=== PATIENT | male | born 1940 | race Caucasian/White ===

== ENCOUNTER 2017-11-21 05:57 | Observation (INO) | payer MEDICARE ==
[2017-11-17 14:47] VITALS: BP 88/45
[2017-11-17 14:48] LABS: BASOPHILS % (AUTO) 0.6 % (0.0-5.0); EOSINOPHILS % (AUTO) 1.3 % (0.0-8.0); HEMATOCRIT 32.8 % (42-54); LYMPHOCYTES % (AUTO) 17.4 % (21.0-51.0); MEAN CORPUSCULAR HEMOGLOBIN 34.9 pg (27.0-33.0); MEAN CORPUSCULAR HGB CONC 33.3 g/dL (32.0-36.0); MEAN CORPUSCULAR VOLUME 104.6 fL (79-99); MONOCYTES % (AUTO) 12.4 % (3.0-13.0); NEUTROPHILS % (AUTO) 68.3 % (40.0-77.0); PLATELET COUNT (AUTO) 175 K/uL (130-400); RED BLOOD CELL COUNT(AUTO) 3.14 MIL/uL (4.50-6.20); RED CELL DISTRIBUTION WIDTH 13.5 % (11.0-15.5); WHITE BLOOD COUNT (AUTO) 3.3 K/uL (4.8-10.8)
[2017-11-17 14:58] LABS: CREATININE 1.1 mg/dL (0.5-1.5); POTASSIUM 4.4 mmol/L (3.5-5.1)
[2017-11-17 14:59] LABS: INR 1.35 (0.85-1.15); PARTIAL THROMBOPLASTIN TIME 39.1 SEC (26.3-35.5); PROTHROMBIN TIME 14.1 SEC (9.6-11.6)
[2017-11-21] VITALS (11 sets, daily range): BP systolic 88–114; BP diastolic 39–80
[~2017-11-21] VITALS: Ht 182.9 cm; Wt 79.7 kg
[~2017-11-21 05:57] MED LIST: ATOR10 PO; CEFAZOLIN SODIUM 1 GM VIAL IVP SCH; METO-408 PO; RIVA20TA PO; SACU1TAB PO
[2017-11-21] MEDS ORDERED: SODIUM CHLORIDE 0.9% 1000ML 1,000 ML IV ONE (06:46)
[2017-11-21] MEDS ORDERED: BUPIVACAINE/PF 0.25% 30ML VIAL IJ ONE (07:14)
[2017-11-21] MEDS ORDERED: LIDOCAINE HCL 1% MDV 50ML VIAL ONE (07:15)
[2017-11-21] MEDS ORDERED: MEPERIDINE-PF 25 MG/ML SYG ONE ×4 (07:15→10:35)
[2017-11-21] MEDS ORDERED: MIDAZOLAM HCL 1 MG/ML 2ML VIAL ONE ×4 (07:15→10:35)
[2017-11-21] MEDS ORDERED: CEFAZOLIN SODIUM 1 GM VIAL ONE (07:15)
[2017-11-21] MEDS ORDERED: IODIXANOL 320 MG/ML 100 ML VIAL ONE (07:41)
[2017-11-21] MEDS ORDERED: VANCOMYCIN 1GM+NS 250ML 250 ML IV ONE (10:48)
[2017-11-21] MEDS ORDERED: TEMAZEPAM 30 MG CAP PO PRN (11:30)
[2017-11-21] MEDS ORDERED: ONDANSETRON HCL 4 MG/2 ML VIAL IV PRN (11:30)
[2017-11-21] MEDS ORDERED: ACETAMINOPHEN 325 MG TAB PO PRN (11:30)
[2017-11-21] MEDS ORDERED: ACETAMINOPHEN-CODEINE 300/30MG TAB PO PRN ×2 (11:30)
[2017-11-21] MEDS: METOPROLOL TARTRATE 25 MG TAB PO SCH (20:35)
[2017-11-21] MEDS ORDERED: ATORVASTATIN CALCIUM 20 MG TABLET PO SCH (21:00)
[2017-11-22 07:53] VITALS: BP 113/66
[2017-11-22] MEDS ORDERED: **HM** ENTRESTO 24-26MG PO SCH (09:00)
[2017-11-22] MEDS: METOPROLOL TARTRATE 25 MG TAB PO SCH (10:16)
[2017-11-22 11:36] VITALS: BP 110/74
== END 2017-11-22 11:50 | disposition home or self-care (01) ==
LOC: DAH 05:57 → DAHIP 05:58 → 2DH 12:12
PROVIDERS: ADMIT Internal Medicine Cardiovascular Disease; ATTEND Internal Medicine Cardiovascular Disease
DX: I48.2 Chronic atrial fibrillation (principal); I25.10 Atherosclerotic heart disease of native coronary artery without angina pectoris; E78.5 Hyperlipidemia, unspecified; I35.0 Nonrheumatic aortic (valve) stenosis; I50.22 Chronic systolic (congestive) heart failure; Z95.810 Presence of automatic (implantable) cardiac defibrillator; Z79.899 Other long term (current) drug therapy; Z79.01 Long term (current) use of anticoagulants
CPT/HCPCS: 33225; 33249; 36415; 71045; 80048; 85025; 85610; 85730; 93005; A4218; A4606; C1769 ×2; C1882; C1895; C1900 ×2; G0378 ×30; J0690; J2175 ×4; J2250 ×4; J3370; J3490 ×2; J7030; Q9967; 99156; 99157

== ENCOUNTER 2018-07-13 10:15 | Inpatient (IN) | payer MEDICARE ==
[~2018-07-13] VITALS: Ht 188 cm; Wt 79.2 kg
[~2018-07-13 10:15] MED LIST changes: -CEFAZOLIN SODIUM 1 GM VIAL IVP SCH
[2018-07-13] MEDS ORDERED: IOHEXOL-350 75 ML VIAL IV ONE (11:06)
[2018-07-13 11:10] LABS: BASOPHILS % (AUTO) 0.1 % (0.0-5.0); LYMPHOCYTES % (AUTO) 1.7 % (21.0-51.0); MEAN CORPUSCULAR HEMOGLOBIN 36.3 pg (27.0-33.0); MEAN CORPUSCULAR HGB CONC 34.8 g/dL (32.0-36.0); MEAN CORPUSCULAR VOLUME 104.5 fL (79-99); MONOCYTES % (AUTO) 7.9 % (3.0-13.0); NEUTROPHILS % (AUTO) 90.3 % (40.0-77.0); NUCLEATED RED BLOOD CELLS 0.1 % (0.0-0.19); PLATELET COUNT (AUTO) 163 K/uL (130-400); RED BLOOD CELL COUNT(AUTO) 3.16 MIL/uL (4.50-6.20); RED CELL DISTRIBUTION WIDTH 14.8 % (11.0-15.5); WHITE BLOOD COUNT (AUTO) 7.1 K/uL (4.8-10.8)
[2018-07-13 11:19] LABS: CREATININE 1.4 mg/dL (0.5-1.5); POTASSIUM 4.4 mmol/L (3.5-5.1)
[2018-07-13 11:24] LABS: ALBUMIN 3.4 g/dL (3.5-5.0); BILIRUBIN,TOTAL 3.7 mg/dL (0.2-1.0); TOTAL PROTEIN, SERUM 6.6 g/dL (6.0-8.3)
[2018-07-13 11:45] LABS: INR 1.09 (0.85-1.15); PARTIAL THROMBOPLASTIN TIME 34.1 SEC (26.3-35.5); PROTHROMBIN TIME 11.4 SEC (9.6-11.6)
[2018-07-13 11:56] LABS: B-TYPE NATRIURETIC PEPTIDE 623 pg/mL (0-100)
[2018-07-13] MEDS ORDERED: FUROSEMIDE 10 MG/ML 4ML VIAL ONE (12:26)
[2018-07-13] MEDS ORDERED: ENOXAPARIN SODIUM 40 MG/0.4 ML SYRINGE SQ ONE (13:49)
[2018-07-13] MEDS ORDERED: ONDANSETRON HCL 4 MG/2 ML VIAL ONE (13:49)
[2018-07-13] MEDS ORDERED: MORPHINE SULFATE 2 MG/ML 1ML SYG ONE (13:50)
[2018-07-13] MEDS ORDERED: LACTATED RINGERS 1000ML 1,000 ML IV ONE (13:50)
[2018-07-13] MEDS ORDERED: LACTATED RINGERS 1000ML 1,000 ML IV SCH (14:45)
[2018-07-13] MEDS ORDERED: ONDANSETRON HCL 4 MG/2 ML VIAL IVP PRN (14:45)
[2018-07-13 18:50] VITALS: BP 96/49
[2018-07-13] MEDS ORDERED: FURO20TA4 PO (18:57)
[2018-07-13] MEDS ORDERED: LEVO50TA11 PO (18:57)
[2018-07-13] MEDS ORDERED: AMIO200T5 PO (18:57)
[2018-07-13] MEDS ORDERED: METO-409 PO (18:57)
[2018-07-13] MEDS ORDERED: DIGO250T13 PO (18:57)
[2018-07-13 19:30] VITALS: BP 94/58
[2018-07-13] MEDS: METOPROLOL TARTRATE 50 MG TAB PO SCH (21:00)
[2018-07-13] MEDS ORDERED: METOPROLOL TARTRATE 25 MG TAB PO SCH (21:00)
[2018-07-13] MEDS: ATORVASTATIN CALCIUM 10 MG TABLET PO SCH (22:59)
[2018-07-13 23:27] VITALS: BP 96/59
[2018-07-13] MEDS: FUROSEMIDE 10 MG/ML 2ML VIAL IV SCH (23:49)
[2018-07-14 04:01] LABS: CREATININE 1.5 mg/dL (0.5-1.5); POTASSIUM 4.1 mmol/L (3.5-5.1)
[2018-07-14 04:15] VITALS: BP 91/61
[2018-07-14] MEDS: LEVOTHYROXINE 50 MCG TABLET PO SCH (06:41)
[2018-07-14 07:00] VITALS: BP 101/58
[2018-07-14] MEDS: **HM** ENTRESTO 24-26MG PO SCH ×2 (09:00→21:59)
[2018-07-14 11:00] VITALS: BP 107/64
[2018-07-14] MEDS: FUROSEMIDE 20 MG TABLET PO SCH (11:13)
[2018-07-14] MEDS: METOPROLOL TARTRATE 50 MG TAB PO SCH ×2 (11:13→21:00)
[2018-07-14] MEDS: AMIODARONE HCL 200 MG TABLET PO SCH (11:13)
[2018-07-14] MEDS: FUROSEMIDE 10 MG/ML 2ML VIAL IV SCH ×2 (11:14→23:30)
[2018-07-14] MEDS: ENOXAPARIN SODIUM 40 MG/0.4 ML SYRINGE SQ SCH (11:14)
[2018-07-14 12:37] LABS: BASOPHILS % (AUTO) 0.1 % (0.0-5.0); EOSINOPHILS % (AUTO) 0.1 % (0.0-8.0); HEMATOCRIT 31.4 % (42-54); LYMPHOCYTES % (AUTO) 2.3 % (21.0-51.0); MEAN CORPUSCULAR HEMOGLOBIN 35.3 pg (27.0-33.0); MEAN CORPUSCULAR HGB CONC 33.6 g/dL (32.0-36.0); MEAN CORPUSCULAR VOLUME 104.8 fL (79-99); NEUTROPHILS % (AUTO) 89.5 % (40.0-77.0); PLATELET COUNT (AUTO) 162 K/uL (130-400); RED CELL DISTRIBUTION WIDTH 14.5 % (11.0-15.5); WHITE BLOOD COUNT (AUTO) 7.5 K/uL (4.8-10.8)
[2018-07-14 16:00] VITALS: BP 104/64
[2018-07-14] MEDS: DIGOXIN 250 MCG TABLET PO SCH (16:00)
--- NOTE | 2018-07-14 16:00 | NUR ---
INITIAL: Met with pt and spouse this afternoon to discuss dcp. Prior to admission pt was living w spouse. He was on a trip to [place] when he fell and injured himself. Prior to injury pt was independent w ambulation and ADLs. He mentions that he feels safe and comfortable [place] He mentions that his spouse will be able to assist him if needed. Discussed options avail such a short term SNF/Rehab. Pt declines at this time. CM to continue to follow and wait for Md recommendations. Addendum: 07/14/18 at 1602 by JULIO MUNOZ CM Amended: Links added.
--- NOTE | 2018-07-14 18:14 | NUR ---
SPOKE WITH DR. LAN AND MD SAID THAT HE WILL SEE PATIENT TOMORROW. UPDATES GIVEN.
[2018-07-14] MEDS: IPRATROPIUM/ALBUTEROL SULFATE 3 ML SOLUTION IH SCH (19:22)
[2018-07-14 19:36] VITALS: BP 104/59
[2018-07-14] MEDS: ATORVASTATIN CALCIUM 10 MG TABLET PO SCH (22:03)
[2018-07-14 23:41] VITALS: BP 97/59
[2018-07-15] MEDS: IPRATROPIUM/ALBUTEROL SULFATE 3 ML SOLUTION IH SCH ×5 (00:41→23:16)
[2018-07-15 03:39] VITALS: BP 94/53
[2018-07-15] MEDS: LEVOTHYROXINE 50 MCG TABLET PO SCH (06:28)
[2018-07-15 07:00] VITALS: BP 97/59
[2018-07-15] MEDS: METOPROLOL TARTRATE 50 MG TAB PO SCH ×2 (09:00→21:00)
[2018-07-15] MEDS: AMIODARONE HCL 200 MG TABLET PO SCH (09:00)
[2018-07-15] MEDS: **HM** ENTRESTO 24-26MG PO SCH ×2 (09:00→22:00)
[2018-07-15] MEDS: FUROSEMIDE 20 MG TABLET PO SCH (10:58)
[2018-07-15 11:00] VITALS: BP 96/57
[2018-07-15] MEDS: ENOXAPARIN SODIUM 40 MG/0.4 ML SYRINGE SQ SCH (11:09)
[2018-07-15] MEDS: ACETAMINOPHEN 325 MG TAB PO SCH ×2 (11:36→19:35)
--- NOTE | 2018-07-15 15:38 | NUR ---
INFORMED KIRA CREWS THAT PATIENT'S SBP HAS BEEN 90-100'S AND HE IS ON AMIODARONE, METOPROLOL, AND ENTRESTO. SAID TO KEEP PATIENT ON ALL HIS BP MEDS. PATIENT'S USUAL SBP RUNS IN THE 90'S.
--- NOTE | 2018-07-15 15:41 | NUR ---
PATIENT REPEATEDLY TAKES HIS O2 OFF. HE SAID THAT HE IS TIRED OF THE NOISE IT MAKES. O2 SAT DROPS TO HIGH 70'S SOON HE IS OFF OXYGEN. EXPLAINED TO PATIENT INDICATION OF O2 THERAPY AND RISKS OF INTERRUPTED TREATMENT. PATIENT VERBALIZED UNDERSTANDING.
[2018-07-15 16:00] VITALS: BP 99/57
[2018-07-15] MEDS: DIGOXIN 250 MCG TABLET PO SCH (16:52)
[2018-07-15] MEDS: FUROSEMIDE 10 MG/ML 4ML VIAL IV SCH (19:26)
[2018-07-15 19:32] VITALS: BP 95/56
[2018-07-15] MEDS: ATORVASTATIN CALCIUM 10 MG TABLET PO SCH (22:00)
[2018-07-15 23:40] VITALS: BP 89/40
[2018-07-16] MEDS: ACETAMINOPHEN 325 MG TAB PO SCH ×4 (01:19→17:11)
[2018-07-16 04:00] VITALS: BP 97/48
[2018-07-16 04:42] LABS: BASOPHILS % (AUTO) 0.3 % (0.0-5.0); EOSINOPHILS % (AUTO) 0.3 % (0.0-8.0); HEMATOCRIT 31.2 % (42-54); LYMPHOCYTES % (AUTO) 3.5 % (21.0-51.0); MEAN CORPUSCULAR HEMOGLOBIN 35.8 pg (27.0-33.0); MEAN CORPUSCULAR HGB CONC 34.6 g/dL (32.0-36.0); MEAN CORPUSCULAR VOLUME 103.3 fL (79-99); MONOCYTES % (AUTO) 11.5 % (3.0-13.0); NEUTROPHILS % (AUTO) 84.4 % (40.0-77.0); PLATELET COUNT (AUTO) 176 K/uL (130-400); RED BLOOD CELL COUNT(AUTO) 3.03 MIL/uL (4.50-6.20); RED CELL DISTRIBUTION WIDTH 14.2 % (11.0-15.5); WHITE BLOOD COUNT (AUTO) 5.5 K/uL (4.8-10.8)
[2018-07-16 04:55] LABS: CREATININE 1.2 mg/dL (0.5-1.5); POTASSIUM 3.4 mmol/L (3.5-5.1)
[2018-07-16] MEDS: LEVOTHYROXINE 50 MCG TABLET PO SCH (06:02)
[2018-07-16] MEDS: IPRATROPIUM/ALBUTEROL SULFATE 3 ML SOLUTION IH SCH ×4 (07:29→23:16)
[2018-07-16 07:48] VITALS: BP 106/59
[2018-07-16] MEDS: **HM** ENTRESTO 24-26MG PO SCH ×2 (09:00→21:15)
[2018-07-16] MEDS: ENOXAPARIN SODIUM 40 MG/0.4 ML SYRINGE SQ SCH (10:01)
[2018-07-16] MEDS: AMIODARONE HCL 200 MG TABLET PO SCH (10:01)
[2018-07-16] MEDS: METOPROLOL TARTRATE 50 MG TAB PO SCH ×2 (10:01→21:00)
[2018-07-16] MEDS: FUROSEMIDE 10 MG/ML 4ML VIAL IV SCH ×2 (10:12→17:11)
[2018-07-16 11:18] VITALS: BP 84/45
[2018-07-16] MEDS: HYDROMORPHONE 1 MG/1 ML AMP IVP PRN (12:26)
[2018-07-16 15:13] VITALS: BP 107/43
[2018-07-16] MEDS: DIGOXIN 250 MCG TABLET PO SCH (16:50)
[2018-07-16 19:40] VITALS: BP 91/52
[2018-07-16] MEDS: ATORVASTATIN CALCIUM 10 MG TABLET PO SCH (21:15)
--- NOTE | 2018-07-17 | NUR ---
PT HAS BEEN STABLE. OXYGEN LEVEL RANGING FROM 90-95% WITH HIGH FLOW NASAL CANNULA. PT AT TIMES WHEN SITTING UP IN BED, WILL TAKE OFF CANNULA AND START TO DROP IN OXYGEN LEVEL TO 80'S. PT AWARE OF IMPORTANCE OF OXYGEN TO MAINTAIN WITHIN NORMAL RANGE. STATES IT COMES OFF EASILY WHEN MOVING UP. PT STATES NO PAIN. MINIMAL SORENESS TO GENERAL BODY. TYLENOL IS SCHEDULED. PT IS ABLE TO SIT UP IN BED, AND USE URINAL. NO DISTRESS NOTED. VPACED 60.
[2018-07-17] MEDS: ACETAMINOPHEN 325 MG TAB PO SCH ×5 (00:07→23:59)
[2018-07-17 03:23] VITALS: BP 108/56
[2018-07-17 03:51] LABS: HEMATOCRIT 31.4 % (42-54); MEAN CORPUSCULAR HEMOGLOBIN 36.3 pg (27.0-33.0); MEAN CORPUSCULAR HGB CONC 35.4 g/dL (32.0-36.0); MEAN CORPUSCULAR VOLUME 102.6 fL (79-99); PLATELET COUNT (AUTO) 188 K/uL (130-400); RED BLOOD CELL COUNT(AUTO) 3.06 MIL/uL (4.50-6.20); RED CELL DISTRIBUTION WIDTH 14.1 % (11.0-15.5)
[2018-07-17 03:55] LABS: CREATININE 1.1 mg/dL (0.5-1.5); POTASSIUM 3.2 mmol/L (3.5-5.1)
[2018-07-17 04:43] LABS: BAND NEUTROPHILS % (MANUAL) 4 % (0-2); LYMPHOCYTES % (MANUAL) 4 % (22-44); MONOCYTES % (MANUAL) 7 % (2-9); SEGMENTED NEUTROPHILS % 85 % (40-70)
[2018-07-17 04:44] LABS: MAN.DIFF COMMENT-IMPRESSION MANUAL DIFFERENTIAL; PLATELET MORPHOLOGY COMMENT ADEQUATE
[2018-07-17] MEDS: FUROSEMIDE 10 MG/ML 4ML VIAL IV SCH ×2 (05:41→19:31)
[2018-07-17] MEDS: LEVOTHYROXINE 50 MCG TABLET PO SCH (05:41)
[2018-07-17] MEDS: IPRATROPIUM/ALBUTEROL SULFATE 3 ML SOLUTION IH SCH ×4 (06:29→23:40)
[2018-07-17 07:30] VITALS: BP 112/50
[2018-07-17] MEDS: METOPROLOL TARTRATE 50 MG TAB PO SCH ×2 (08:47→21:16)
[2018-07-17] MEDS: AMIODARONE HCL 200 MG TABLET PO SCH (08:47)
[2018-07-17] MEDS: **HM** ENTRESTO 24-26MG PO SCH ×2 (08:48→19:32)
[2018-07-17] MEDS: ENOXAPARIN SODIUM 40 MG/0.4 ML SYRINGE SQ SCH (08:51)
[2018-07-17] MEDS ORDERED: LIDOCAINE HCL-MPF 1% 2ML VIAL IVP PRN (10:15)
[2018-07-17] MEDS ORDERED: MAGNESIUM 2GM PREMIX 50ML 50 ML IV PRN (10:15)
[2018-07-17] MEDS ORDERED: POTASSIUM CHLORIDE 10% ELIXIR 20 MEQ/15 ML UDCUP PO PRN (10:15)
[2018-07-17] MEDS ORDERED: POTASSIUM CHLORIDE 20MEQ/100ML 100 ML IV PRN (10:15)
[2018-07-17] MEDS: POTASSIUM CHLORIDE 20 MEQ ERTAB PO PRN ×2 (11:09→17:20)
[2018-07-17 11:12] VITALS: BP 118/55
[2018-07-17] MEDS: HYDROMORPHONE 1 MG/1 ML AMP IVP PRN (12:22)
[2018-07-17 15:00] VITALS: BP 112/74
[2018-07-17] MEDS: DIGOXIN 250 MCG TABLET PO SCH (17:22)
[2018-07-17] MEDS: ATORVASTATIN CALCIUM 10 MG TABLET PO SCH (19:32)
[2018-07-17 21:01] VITALS: BP 112/74
--- NOTE | 2018-07-17 23:00 | NUR ---
PT HAS BEEN HAVING DIFFICULTY WITH NASAL CANNULA-HIGH FLOW. WHEN ATTEMPTING TO SIT UP OR MOVE IN BED TUBING BECOMES LOOSE OR COMES OFF AND HIS OXYGEN LEVEL LOWERS TO 80'S. NO DISTRESS NOTED. NO PAINS STATED BUT STATES WILL TAKE THE TYLENOL SCHEDULED AT 5/8 0000. VOIDING WELL. HAS BEEN SLOWLY WEENED OFF HIGH OXYGEN. CURRENTLY AT 20%-30.
[2018-07-18] VITALS (7 sets, daily range): BP systolic 91–137; BP diastolic 53–63
[2018-07-18 04:05] LABS: CREATININE 1.2 mg/dL (0.5-1.5); POTASSIUM 3.5 mmol/L (3.5-5.1)
[2018-07-18 04:08] LABS: HEMATOCRIT 31.8 % (42-54); MEAN CORPUSCULAR HEMOGLOBIN 35.3 pg (27.0-33.0); MEAN CORPUSCULAR HGB CONC 34.1 g/dL (32.0-36.0); MEAN CORPUSCULAR VOLUME 103.4 fL (79-99); NUCLEATED RED BLOOD CELLS 0.1 % (0.0-0.19); PLATELET COUNT (AUTO) 235 K/uL (130-400); RED BLOOD CELL COUNT(AUTO) 3.07 MIL/uL (4.50-6.20); RED CELL DISTRIBUTION WIDTH 14.3 % (11.0-15.5); WHITE BLOOD COUNT (AUTO) 4.6 K/uL (4.8-10.8)
[2018-07-18 04:10] LABS: ABG BASE EXCESS 5.9 mmol/L (-2.0-3.0); ABG OXYGEN SATURATION 92.8 % (95.0-99.0); ABG PCO2 37 mmHg (35-48)
[2018-07-18 04:46] LABS: EOSINOPHILS % (MANUAL) 3 % (1-6); LYMPHOCYTES % (MANUAL) 8 % (22-44); MAN.DIFF COMMENT-IMPRESSION MANUAL DIFFERENTIAL; MONOCYTES % (MANUAL) 4 % (2-9); SEGMENTED NEUTROPHILS % 85 % (40-70)
[2018-07-18 04:48] LABS: PLATELET MORPHOLOGY COMMENT LARGE PLTS PRESENT
[2018-07-18] MEDS: FUROSEMIDE 10 MG/ML 4ML VIAL IV SCH (06:08)
[2018-07-18] MEDS: LEVOTHYROXINE 50 MCG TABLET PO SCH (06:08)
[2018-07-18] MEDS: ACETAMINOPHEN 325 MG TAB PO SCH ×4 (06:08→18:00)
[2018-07-18] MEDS: POTASSIUM CHLORIDE 20 MEQ ERTAB PO PRN ×2 (07:26→14:39)
[2018-07-18] MEDS: IPRATROPIUM/ALBUTEROL SULFATE 3 ML SOLUTION IH SCH ×4 (07:28→23:30)
--- NOTE | 2018-07-18 08:20 | NUR ---
RESTING IN BED WITH HOB AT 30 DEGREES, RESP.'S EVEN AND UNLABORED. AAOX3, DENIES ANY C/O SOB, DENIES ANY CURRENT PAIN. RIGHT ARM WITH SLING IN PLACE WELL A BRACE. FINGERS WITH GOOD CMS. ABD SOFT WITH (+) BOWEL SOUNDS, DENIES ANY C/O N/V. VOIDS, W/O C/O. COMPLETE ASSESSMENT DONE. CALL LIGHT WITHIN REACH, VERBALIZED ABILITY TO USE. BED LOW, SIDE RAILS UP X2.
--- NOTE | 2018-07-18 09:09 | NUR ---
Robby ROSALES PA-C, IN ROOM SPEAKING WITH PT. AND PT.'S SPOUSE AT BEDSIDE EXPLAINING PLAN OF CARE AND ANSWERING QUESTIONS. Addendum: 07/18/18 at 0915 by CHRISTIAN DAWKINS RN RN AICD ROENTGENOLOGIST IN ROOM/AICD INTERROGATION IN PROGRESS.
--- NOTE | 2018-07-18 09:33 | NUR ---
FABIANA BELCHER, BORING MACHINE FEEDER, IN ROOM SPEAKING WITH PT. RE:PLAN OF CARE. QUESTIONS ANSWERED BY BORING MACHINE FEEDER.
[2018-07-18] MEDS: AMIODARONE HCL 200 MG TABLET PO SCH (10:15)
[2018-07-18] MEDS: METOPROLOL TARTRATE 50 MG TAB PO SCH ×2 (10:15→21:09)
[2018-07-18] MEDS: PREDNISONE 20 MG TABLET PO SCH (10:15)
[2018-07-18] MEDS: **HM** ENTRESTO 24-26MG PO SCH ×2 (10:15→21:14)
[2018-07-18] MEDS: ENOXAPARIN SODIUM 40 MG/0.4 ML SYRINGE SQ SCH (10:18)
--- NOTE | 2018-07-18 11:25 | NUR ---
DC Plan Discussed dcp with patient and Robby Damon NP with [facility]. Both in agreement to [facility] for highflow O2 treatment. Patient signed SHERE[facility] and Choice Letter. Referral faxed w/ confirmation received. Notified Ernestina velázquez/ [facility]. Anticipate dc today once accepted. Updated nursing staff. CD Addendum: 07/18/18 at 1127 by BELL EDWARDS CM Amended: Links added.
[2018-07-18] MEDS: FUROSEMIDE 10 MG/ML 2ML VIAL IV SCH ×2 (14:41→22:33)
[2018-07-18] MEDS: DIGOXIN 250 MCG TABLET PO SCH (15:07)
[2018-07-18] MEDS ORDERED: FUROSEMIDE 40 MG TABLET PO SCH (17:00)
[2018-07-18] MEDS: ATORVASTATIN CALCIUM 10 MG TABLET PO SCH (21:09)
[2018-07-19] MEDS: ACETAMINOPHEN 325 MG TAB PO SCH ×4 (00:12→15:49)
[2018-07-19 04:04] VITALS: BP 103/63
[2018-07-19 04:14] LABS: HEMATOCRIT 30.8 % (42-54); MEAN CORPUSCULAR HEMOGLOBIN 36.4 pg (27.0-33.0); MEAN CORPUSCULAR HGB CONC 35.6 g/dL (32.0-36.0); MEAN CORPUSCULAR VOLUME 102.1 fL (79-99); NUCLEATED RED BLOOD CELLS 0.1 % (0.0-0.19); PLATELET COUNT (AUTO) 229 K/uL (130-400); RED BLOOD CELL COUNT(AUTO) 3.02 MIL/uL (4.50-6.20); RED CELL DISTRIBUTION WIDTH 14.1 % (11.0-15.5); WHITE BLOOD COUNT (AUTO) 5.2 K/uL (4.8-10.8)
[2018-07-19 04:21] LABS: INR 1.03 (0.85-1.15); PARTIAL THROMBOPLASTIN TIME 33.2 SEC (26.3-35.5); PROTHROMBIN TIME 10.8 SEC (9.6-11.6)
[2018-07-19 04:29] LABS: BAND NEUTROPHILS % (MANUAL) 2 % (0-2); LYMPHOCYTES % (MANUAL) 2 % (22-44); MAN.DIFF COMMENT-IMPRESSION MANUAL DIFFERENTIAL; MONOCYTES % (MANUAL) 8 % (2-9); PLATELET MORPHOLOGY COMMENT ADEQUATE; SEGMENTED NEUTROPHILS % 88 % (40-70)
[2018-07-19 04:31] LABS: CREATININE 1.3 mg/dL (0.5-1.5); PHOSPHORUS 3.5 mg/dL (2.5-4.9)
[2018-07-19] MEDS: LEVOTHYROXINE 50 MCG TABLET PO SCH (06:05)
[2018-07-19] MEDS: FUROSEMIDE 10 MG/ML 2ML VIAL IV SCH ×2 (06:07→12:51)
[2018-07-19] MEDS: IPRATROPIUM/ALBUTEROL SULFATE 3 ML SOLUTION IH SCH ×2 (06:34→11:37)
[2018-07-19 07:29] VITALS: BP 96/53
[2018-07-19] MEDS: METOPROLOL TARTRATE 50 MG TAB PO SCH (08:40)
[2018-07-19] MEDS: PREDNISONE 20 MG TABLET PO SCH (08:40)
--- NOTE | 2018-07-19 08:40 | NUR ---
SITTING UP IN BED. AAOX3, RESP.'S EVEN AND UNLABORED. DENIES ANY SOB, DENIES ANY CURRENT PAIN. STATES FEELING "BETTER." RIGHT ARM WITH SPLINT IN PLACE WELL SLING. DENIES ANY C/O N/V. VOIDS, W/O C/O. COMPLETE ASSESSMENT DONE. CALL LIGHT WITHIN REACH, VERBALIZED ABILITY TO USE. BED LOW, SIDE RAILS UP X2.
[2018-07-19] MEDS: **HM** ENTRESTO 24-26MG PO SCH (08:41)
[2018-07-19] MEDS: AMIODARONE HCL 200 MG TABLET PO SCH (08:41)
[2018-07-19] MEDS: ENOXAPARIN SODIUM 40 MG/0.4 ML SYRINGE SQ SCH (08:43)
--- NOTE | 2018-07-19 09:40 | NUR ---
CM NOTE- ACCEPTED AT [facility] CALL MADE TO GERMANIA JACOBS FROM [facility]. CONFIRMED PT WAS ACCEPTED. ADVISED KOURTNEY HARRIS, MOT COMPLETED AND SIGEND BY TRANSLATIONAL SPECIALIST FROM DR. PINTO. MED REC COMPLTED EMS FORM UPDATED AND GIVEN TO KOURTNEY HARRIS. Addendum: 07/20/18 at 0823 by MADDY MCDERMOTT RN CM Amended: Links added.
[2018-07-19 11:21] VITALS: BP 99/53
[2018-07-19] MEDS: DIGOXIN 250 MCG TABLET PO SCH (15:50)
--- NOTE | 2018-07-19 16:00 | NUR ---
REPORT TO MOHAMUD MCKEON RN AT [facility].
[2018-07-19 16:18] VITALS: BP 84/54
--- NOTE | 2018-07-19 17:02 | NUR ---
DISCHARGE INSTRUCTIONS GIVEN, VERBALIZED UNDERSTANDING.
--- NOTE | 2018-07-19 17:10 | NUR ---
DISCHARGED VIA EMS BY STRETCHER. PT.'S SPOUSE TOOK ALL PT.'S BELONGINGS.
== END 2018-07-19 17:10 | DRG 562 ==
LOC: EDH 10:15 → EDHIP 13:17 → 2DH 18:11
PROVIDERS: ADMIT Internal Medicine Pulmonary Disease; ATTEND Internal Medicine Pulmonary Disease
DX: S42.301A Unspecified fracture of shaft of humerus, right arm, initial encounter for closed fracture (principal); S27.1XXA Traumatic hemothorax, initial encounter; J96.91 Respiratory failure, unspecified with hypoxia; I50.43 Acute on chronic combined systolic (congestive) and diastolic (congestive) heart failure; I13.0 Hypertensive heart and chronic kidney disease with heart failure and stage 1 through stage 4 chronic kidney disease, or unspecified chronic kidney disease; J98.11 Atelectasis; J84.9 Interstitial pulmonary disease, unspecified; I47.2 Ventricular tachycardia; S22.41XA Multiple fractures of ribs, right side, initial encounter for closed fracture; I42.0 Dilated cardiomyopathy; E78.5 Hyperlipidemia, unspecified; I25.10 Atherosclerotic heart disease of native coronary artery without angina pectoris; I34.0 Nonrheumatic mitral (valve) insufficiency; I48.0 Paroxysmal atrial fibrillation; I48.2 Chronic atrial fibrillation; W01.0XXA Fall on same level from slipping, tripping and stumbling without subsequent striking against object, initial encounter; N18.3 Chronic kidney disease, stage 3 (moderate); Z74.01 Bed confinement status; Z79.01 Long term (current) use of anticoagulants; Z79.899 Other long term (current) drug therapy; Z82.3 Family history of stroke; Z82.49 Family history of ischemic heart disease and other diseases of the circulatory system; Z85.828 Personal history of other malignant neoplasm of skin; Z95.810 Presence of automatic (implantable) cardiac defibrillator; Y93.89 Activity, other specified; Y92.89 Other specified places as the place of occurrence of the external cause; Y99.8 Other external cause status
CPT/HCPCS: 36415; 36600; 71045; 71275; 80048; 80053; 82803; 83605; 83690; 83735; 83880; 84100; 84484; 85025; 85610; 85730; 93005; 93306; 93970; 94640; 94664; 97039; G0378; J1170; J1650; J1940; J2405; J3475; J7120; Q9967

== ENCOUNTER 2018-08-13 10:00 | Inpatient (IN) | payer MEDICARE ==
[~2018-08-13] VITALS: Ht 182.9 cm; Wt 73.0 kg
[2018-08-13 09:10] VITALS: BP 90/57
[2018-08-13 09:55] LABS: BASOPHILS % (AUTO) 0.4 % (0.0-5.0); EOSINOPHILS % (AUTO) 1.1 % (0.0-8.0); HEMATOCRIT 37.9 % (42-54); LYMPHOCYTES % (AUTO) 14.4 % (21.0-51.0); MEAN CORPUSCULAR HEMOGLOBIN 35.3 pg (27.0-33.0); MEAN CORPUSCULAR VOLUME 103.9 fL (79-99); NEUTROPHILS % (AUTO) 69.1 % (40.0-77.0); PLATELET COUNT (AUTO) 181 K/uL (130-400); RED BLOOD CELL COUNT(AUTO) 3.65 MIL/uL (4.50-6.20); RED CELL DISTRIBUTION WIDTH 14.6 % (11.0-15.5); WHITE BLOOD COUNT (AUTO) 2.8 K/uL (4.8-10.8)
[~2018-08-13 10:00] MED LIST changes: +LEVO50TA11 PO; -METO-408 PO
[2018-08-13 10:07] LABS: CREATININE 1.1 mg/dL (0.5-1.5); POTASSIUM 4.6 mmol/L (3.5-5.1)
[2018-08-13 10:16] LABS: INR 1.02 (0.85-1.15); PARTIAL THROMBOPLASTIN TIME 30.1 SEC (26.3-35.5); PROTHROMBIN TIME 10.7 SEC (9.6-11.6)
[2018-08-13] MEDS ORDERED: DIGO250T84 PO (10:16)
[2018-08-13] MEDS ORDERED: AMIO200T5 PO (10:16)
[2018-08-13] MEDS ORDERED: METO-409 PO (10:16)
[2018-08-13] MEDS ORDERED: FURO20TA4 PO (10:16)
[2018-08-13 10:29] LABS: LYMPHOCYTES % (MANUAL) 19 % (22-44); MONOCYTES % (MANUAL) 12 % (2-9); REACTIVE LYMPHOCYTES 1 % (0-0); SEGMENTED NEUTROPHILS % 68 % (40-70)
[2018-08-13 10:30] LABS: MAN.DIFF COMMENT-IMPRESSION MANUAL DIFFERENTIAL
[2018-08-13 10:31] LABS: PLATELET MORPHOLOGY COMMENT ADEQUATE
[2018-08-13] MEDS: CEFAZOLIN SODIUM 1 GM VIAL IVP SCH (11:00)
--- NOTE | 2018-08-13 14:22 | NUR ---
ABNORMAL LABS CALLED 'S OFFICE TO REPORT ABNORMAL CBC; WBC 2.8, RBC 3.65, H/H 12.9/37.9, SPOKE TO OMAR, STATED SHE WILL REPORT TO DR. ACEVES AND WILL CALL BACK FOR ANY ORDERS. CALL BACK NUMBER PROVIDED.
--- NOTE | 2018-08-13 14:30 | NUR ---
CALL BACK CALL BACK FROM OMAR. PER DR. ACEVES, MAY PROCEED WITH PLANNED PROCEDURE, NO FURTHER ORDERS.
--- NOTE | 2018-08-13 15:12 | NUR ---
NOTE CALLED DR. BRAUN AND GAVE REPORT RE PT'S HISTORY. REPORTED TO DR. BRAUN THAT PT IS CLEARED BY INDUSTRIAL HYGIENE ENGINEER, MODERATE RISK AND WOULD REQUIRE RESPIRATORY MONITORING. ALSO TOLD DR. BRAUN THAT NOTES FROM [facility] STATES PT HAS APPT WITH HIS IRON BENDER FOR CLEARANCE WELL. CALLED [facility], PT HAS NOT BEEN SEEN OUTPATIENT. WHEN I CALLED PT, HE STATED THAT HE HAS BEEN SEEN IN [facility] AT THE TIME OF HOSPITALIZATION ON JULY [id number]. EKG RESULT VENTRICULAR PACED RHYTHM ALSO REPORTED. PER DR. BRAUN, OKAY TO PROCEED IF PT HAS NO SYMPTOMS. PRE OP NURSE STATED PT WAS STABLE ON PREOP INTERVIEW, ASYMPTOMATIC AND DI NOT HAVE ANY COMPLAINTS. PROGRESS NOTES FROM IRON BENDER PLACED IN CHART PER DR. BRAUN REQUEST.
[2018-08-14] VITALS (54 sets, daily range): BP systolic 75–118; BP diastolic 41–67
[2018-08-14] MEDS ORDERED: LACTATED RINGERS 1000ML 1,000 ML IV ONE ×2 (06:57→17:09)
[2018-08-14] MEDS ORDERED: ONDANSETRON HCL 4 MG/2 ML VIAL ONE (07:20)
[2018-08-14] MEDS ORDERED: SUCCINYLCHOLINE 200MG/10ML SYR ONE (07:20)
[2018-08-14] MEDS ORDERED: NEOSTIGMINE 5MG/5ML SYR IV ONE (07:20)
[2018-08-14] MEDS ORDERED: MIDAZOLAM HCL 1 MG/ML 2ML VIAL ONE (07:20)
[2018-08-14] MEDS ORDERED: LIDOCAINE PF 2% 5ML ABBOJECT ONE (07:20)
[2018-08-14] MEDS ORDERED: GLYCOPYRROLATE 1 MG/5 ML SYRINGE ONE (07:20)
[2018-08-14] MEDS ORDERED: PROPOFOL 10 MG/ML 20ML VIAL IV ONE (07:20)
[2018-08-14] MEDS ORDERED: DEXAMETHASONE SOD PHOSPHATE 10MG/ML 1ML VIAL ONE (07:20)
[2018-08-14] MEDS ORDERED: FENTANYL CITRATE PF 50 MCG/1 ML 2ML VIAL ONE ×3 (07:21→12:20)
[2018-08-14] MEDS ORDERED: ROCURONIUM 10MG/1ML SYR 10 MG/ML ML ONE (07:21)
[2018-08-14] MEDS: CEFAZOLIN SODIUM 1 GM VIAL IVP SCH ×2 (07:35→17:28)
[2018-08-14] MEDS ORDERED: PHENYLEPHRINE HCL 10 MG/ML 1ML VIAL IV ONE (07:49)
[2018-08-14] MEDS ORDERED: TRANEXAMIC ACID 1000MG/10ML IV ONE (08:27)
[2018-08-14] MEDS: METOPROLOL TARTRATE 50 MG TAB PO SCH ×2 (09:00→20:47)
[2018-08-14] MEDS: AMIODARONE HCL 200 MG TABLET PO SCH ×2 (09:00→20:50)
[2018-08-14] MEDS: LEVOTHYROXINE 50 MCG TABLET PO SCH (09:00)
[2018-08-14] MEDS: **HM** ENTRESTO 24-26MG PO SCH ×2 (09:00→20:49)
[2018-08-14] MEDS: SODIUM CHLORIDE 0.9% 1000ML 1,000 ML IV SCH ×2 (10:10→20:04)
[2018-08-14] MEDS ORDERED: POTASSIUM CHLORIDE 20MEQ/100ML 100 ML IV PRN (10:15)
[2018-08-14] MEDS ORDERED: ONDANSETRON HCL 4 MG/2 ML VIAL IVP PRN (10:15)
[2018-08-14] MEDS ORDERED: POTASSIUM CHLORIDE 10% ELIXIR 20 MEQ/15 ML UDCUP PO PRN (10:15)
[2018-08-14] MEDS ORDERED: POTASSIUM CHLORIDE 20 MEQ ERTAB PO PRN (10:15)
[2018-08-14] MEDS ORDERED: LIDOCAINE HCL-MPF 1% 2ML VIAL IVP PRN (10:15)
[2018-08-14] MEDS ORDERED: OXYCODONE HCL 5 MG TAB PO PRN ×2 (10:15)
--- NOTE | 2018-08-14 10:52 | NUR ---
DR. BRAUN NOTIFIED OF PT'S LOW BP. NO NEW ORDERS, CONTINUE TO MONITOR FOR NOW. Addendum: 08/14/18 at 1053 by BERTRAM GONZALES RN RN Amended: Links added.
[2018-08-14] MEDS ORDERED: EPHEDRINE SULFATE 50 MG/ML AMPULE ONE (10:58)
--- NOTE | 2018-08-14 11:00 | NUR ---
DR. BRAUN INFORMED BP NOT PICKING UP. ORDERS GIVEN FOR EPHEDRINE. Addendum: 08/14/18 at 1215 by BERTRAM GONZALES RN RN Amended: Links added.
--- NOTE | 2018-08-14 11:51 | NUR ---
DR. BRAUN NOTIFIED OF PT'S LOW BP. ORDERS GIVEN FOR 500 NS BOLUS AND GIVEN EPHEDRINE 10MG IVP. Addendum: 08/14/18 at 1215 by BERTRAM GONZALES RN RN Amended: Links added.
--- NOTE | 2018-08-14 12:20 | NUR ---
DR BRAUN NOTIFIED PT COMPLAINING OF PAIN AND BP LOW. ORDERS GIVEN FOR FENTANYL AND NS BOLUS 250. Addendum: 08/14/18 at 1530 by BERTRAM GONZALES RN RN Amended: Links added.
--- NOTE | 2018-08-14 12:45 | NUR ---
DR. BRAUN NOTIFIED OF PT'S CONDITION. ORDERS GIVEN FOR ICU, SONY SHERRON. Addendum: 08/14/18 at 1532 by BERTRAM GONZALES RN RN Amended: Links added.
[2018-08-14] MEDS ORDERED: PHENYLEPHRINE HCL 10/NS 250ML IV PRN ×2 (13:00)
--- NOTE | 2018-08-14 14:45 | NUR ---
DR. ACEEVS UPDATED ON PT'S CONDITION. DR. ACEVES PROVIDED ORDERS. Addendum: 08/14/18 at 1533 by BERTRAM GONZALES RN RN Amended: Links added.
--- NOTE | 2018-08-14 15:51 | NUR ---
DEREK REYNOSO KEPT UPDATED ON PT'S STATUS, AND GOT TO SEE PT IN PACU. ALSO NOTIFIED PT WILL BE GOING TO 218. Addendum: 08/14/18 at 1553 by BERTRAM GONZALES RN RN Amended: Links added.
--- NOTE | 2018-08-14 16:30 | NUR ---
PT ARRIVED [facility]O PACU, REPORT FROM JAMAICA HARRIS. PT IS POST ORIF RIGHT HUMERUS FX POST FALL. PT IS AAOX4, NO ACUTE DISTRESS NOTED AT THIS TIME. PT WAS ADMITTED TO ICU POST SX D/T HYPOTENSION. PT IS CURRENTLY ON SONY-SYNEPHRINE DRIP AT 10MCG/MIN. DRESSING TO RIGHT ARM WAS REINFORCED BY JAMAICA HARRIS AT PACU D/T BLEEDING. PT WITH HISTORY OF AFIB AND IS ON XARELTO DAILY. NEURO STATUS INTACT. RADIAL PULSES PALPATED. POC DISCUSSED WITH PATIENT AND SPOUSE. TELE WITH V-PACED RHYTHM 60. PT AND SPOUSE ORIENTED TO ROOM AND ENVIRONMENT.
--- NOTE | 2018-08-14 17:00 | NUR ---
INFORMED DR. ARROYO AND DR. HAWK OF NEW CONSULT. NEW ORDERS RECEIVED FROM DR. ARROYO.
[2018-08-14] MEDS: ACETAMINOPHEN EXTRA STRENGTH 500 MG TABLET PO SCH (17:02)
[2018-08-14] MEDS ORDERED: LACTATED RINGERS 1000ML IV SCH ×2 (17:15→18:30)
[2018-08-14] MEDS ORDERED: LACTATED RINGERS 1000ML 1,000 ML IV SCH ×2 (17:45→19:30)
[2018-08-14 17:48] LABS: HEMATOCRIT 33.1 % (42-54); MEAN CORPUSCULAR HEMOGLOBIN 34.9 pg (27.0-33.0); MEAN CORPUSCULAR HGB CONC 33.8 g/dL (32.0-36.0); MEAN CORPUSCULAR VOLUME 103.2 fL (79-99); PLATELET COUNT (AUTO) 159 K/uL (130-400); RED BLOOD CELL COUNT(AUTO) 3.21 MIL/uL (4.50-6.20); WHITE BLOOD COUNT (AUTO) 4.5 K/uL (4.8-10.8)
[2018-08-14 18:03] LABS: ALBUMIN 2.9 g/dL (3.5-5.0); BILIRUBIN,TOTAL 1.7 mg/dL (0.2-1.0); POTASSIUM 4.7 mmol/L (3.5-5.1); TOTAL PROTEIN, SERUM 5.6 g/dL (6.0-8.3)
--- NOTE | 2018-08-14 18:21 | NUR ---
RECEIVED CALL FROM DR. LAN. UPDATED ON PT STATUS AND INFORMED HIM THAT I HAD NOTIFIED DR. ARROYO AND DR. HAWK OF CONSULT.
--- NOTE | 2018-08-14 18:30 | NUR ---
MD ROUNDS DR. ARROYO IN TO SEE PATIENT. MD REVIEWED LABS, EKG AND SPOKE WITH PATIENT. ORDERED FOR ANOTHER LR LITER BOLUS. WILL CONT TO MONITOR.
[2018-08-14] MEDS: DIGOXIN 250 MCG TABLET PO SCH (20:49)
[2018-08-14] MEDS: RIVAROXABAN 20 MG TABLET PO SCH (20:49)
[2018-08-14] MEDS ORDERED: KETOROLAC TROMETHAMINE 15MG/ML IV SCH (21:00)
--- NOTE | 2018-08-14 21:05 | NUR ---
PAIN PATIENT VOICES DISCOMFORT TO RIGHT ARM. PATIENT SCHEDULED DOSE OF TYLENOL GIVEN PREVIOUSLY. INFORMED ON OXYCODONE AVAILABLE. ANSWERED PATIENT QUESTIONS REGARDING DRUG. PATIENT VERBALIZED DID NOT WANT ANYTHING THAT WOULD LOWER HIS BLOOD PRESSURE. HOSPITALIST BROADCAST TRAFFIC COORDINATOR PAGED. RECEIVED ORDER FOR ONE TIME DOSE TORADOL.
[2018-08-15] VITALS (19 sets, daily range): BP systolic 87–110; BP diastolic 43–61
[2018-08-15] MEDS: CEFAZOLIN SODIUM 1 GM VIAL IVP SCH (00:44)
[2018-08-15] MEDS: ACETAMINOPHEN EXTRA STRENGTH 500 MG TABLET PO SCH ×3 (02:11→17:22)
[2018-08-15 03:37] LABS: HEMATOCRIT 27.4 % (42-54); MEAN CORPUSCULAR HGB CONC 34.6 g/dL (32.0-36.0); MEAN CORPUSCULAR VOLUME 103.9 fL (79-99); PLATELET COUNT (AUTO) 135 K/uL (130-400); RED BLOOD CELL COUNT(AUTO) 2.64 MIL/uL (4.50-6.20); RED CELL DISTRIBUTION WIDTH 14.3 % (11.0-15.5); WHITE BLOOD COUNT (AUTO) 3.9 K/uL (4.8-10.8)
[2018-08-15 03:49] LABS: CREATININE 1.2 mg/dL (0.5-1.5); POTASSIUM 4.1 mmol/L (3.5-5.1)
--- NOTE | 2018-08-15 06:00 | NUR ---
BLADDER SCAN PATIENT UNABLE TO VOID. SMALL AMOUNT OF 50ML COLLECTED EARLIER. BLADDER SCAN COMPLETED. 607 ML NOTED.
[2018-08-15] MEDS: SODIUM CHLORIDE 0.9% 1000ML 1,000 ML IV SCH (06:10)
--- NOTE | 2018-08-15 06:20 | NUR ---
STATUS PATIENT UNABLE TO URINATE. 50 ML COLLECTED EARLIER. INFORMED PATIENT OF ORDERS FOR STRAIGHT CATH IF UNABLE TO VOID EARLIER IN THE EVENING. PATIENT REFUSED STRAIT CATH. REFUSAL FORM SIGNED.
--- NOTE | 2018-08-15 06:50 | NUR ---
MD ROUNDS DR ACEVES ROUNDED. UPDATED ON PATIENT CONDITION AND CATH REFUSAL. INFORMED OF BLADDER VOLUME COLLECTED. MD SPOKE WITH PATIENT REGARDING NEED TO VOID AND CATHETERIZATION. DR ACEVES STATED IF PATIENT STILL UNABLE TO VOID AFTER AM TO FOLLOW HOSPITALIST RECOMMENDATIONS. ORDERS RECEIVED TO CHANGE DRESSING AND REMOVE PATIENCE BANDAGE.
[2018-08-15] MEDS: METOPROLOL TARTRATE 50 MG TAB PO SCH ×2 (09:00→21:00)
[2018-08-15] MEDS: **HM** ENTRESTO 24-26MG PO SCH ×2 (09:00→21:00)
[2018-08-15] MEDS: AMIODARONE HCL 200 MG TABLET PO SCH ×2 (09:09→21:28)
[2018-08-15] MEDS: LEVOTHYROXINE 50 MCG TABLET PO SCH (09:09)
[2018-08-15] MEDS: POLYETHYLENE GLYCOL 3350 17 GM POWD.PACK PO SCH (09:09)
--- NOTE | 2018-08-15 11:28 | NUR ---
DC PLAN VISITED WITH PATIENT. PATIENT LIVES WITH SPOUSE. INDEPENDENT ABLE TO PERFORM ADL'S. PATIENT HAS NO SERVICES OR DME'S. FEELS SAFE TO RETURN HOME. Addendum: 08/15/18 at 1130 by BRINA VIDAL RN CM Amended: Links added.
[2018-08-15] MEDS: TAMSULOSIN HCL 0.4 MG CAP.ER.24H PO SCH (15:35)
--- NOTE | 2018-08-15 18:08 | NUR ---
Report called to Sarah RN on 4th floor. All questions answered. Informed of pending in/out cath if he does not have a large void. Patient and family updated on transfer. Patient transferred via wheelchair with all belongings and in stable condition.
--- NOTE | 2018-08-15 19:36 | NUR ---
REPORT GIVEN TO TREMAINE ORDERS TO DO IN AND OUT BY 1900 IF PT DOES NOT VOID SIGNIFICANT AMOUNT. PT HAS NOT VOIDED SINCE ARRIVED TO FLOOR. BLADDER SCAN = 604 POST VOID OF 100ML URINE. REPORTED TO STEVEN PENALOZA.
[2018-08-15] MEDS: RIVAROXABAN 20 MG TABLET PO SCH (21:28)
--- NOTE | 2018-08-15 21:30 | NUR ---
URINARY RETENTION UNABLE TO VOID, BLADDER SCANNING SHOWING 800 CC , STRAIGHT CATHETER USING 16 GAUGE INTRODUCED USING ASEPTIC TECHNIQUE, OBTAIN 850 CC OF CLEAR YELLOW URINE, TOLERATED WELL, DTV, INSTRUCT PATIENT TO CALL NURSE WHEN URGE TO VOID , PATIENT VERBALIZES UNDERSTANDING VIA TEACH BACK, CALL MARKS AT REACH
[2018-08-15] MEDS: DIGOXIN 250 MCG TABLET PO SCH (21:31)
[2018-08-16] MEDS: ACETAMINOPHEN EXTRA STRENGTH 500 MG TABLET PO SCH ×3 (02:54→18:42)
[2018-08-16 04:00] VITALS: BP 98/50
[2018-08-16 07:52] VITALS: BP 90/52
--- NOTE | 2018-08-16 08:43 | NUR ---
DC PLAN SPOKE TO DR. LAN NO CM NEEDS NEEDED. NO HOME HEALTH OR DME. Addendum: 08/16/18 at 0844 by BRINA VIDAL RN CM Amended: Links added.
[2018-08-16] MEDS: **HM** ENTRESTO 24-26MG PO SCH (09:00)
[2018-08-16] MEDS: AMIODARONE HCL 200 MG TABLET PO SCH (09:00)
[2018-08-16] MEDS: METOPROLOL TARTRATE 50 MG TAB PO SCH (09:00)
[2018-08-16] MEDS: LEVOTHYROXINE 50 MCG TABLET PO SCH (09:44)
[2018-08-16] MEDS: TAMSULOSIN HCL 0.4 MG CAP.ER.24H PO SCH (09:45)
[2018-08-16] MEDS: POLYETHYLENE GLYCOL 3350 17 GM POWD.PACK PO SCH (09:45)
[2018-08-16 11:09] VITALS: BP 97/55
[2018-08-16 16:36] VITALS: BP 93/51
[2018-08-17] MEDS ORDERED: BISACODYL 10 MG SUPP.RECT RC PRN (10:15)
== END 2018-08-16 19:25 | disposition home or self-care (01) | DRG 492 ==
LOC: EDSTATUS 10:00 → DAHIP 08-14 06:22 → 4AH 08-14 11:24 → 2BH 08-14 17:00 → 4AH 08-15 18:32
PROVIDERS: ADMIT Orthopaedic Surgery; ATTEND Orthopaedic Surgery
PROC: 0PSF06Z Reposition Right Humeral Shaft with Intramedullary Internal Fixation Device, Open Approach (ICD-10-PCS; principal; 2018-08-14 07:30)
DX: S42.301A Unspecified fracture of shaft of humerus, right arm, initial encounter for closed fracture (principal); R57.1 Hypovolemic shock; I42.0 Dilated cardiomyopathy; S22.41XA Multiple fractures of ribs, right side, initial encounter for closed fracture; I13.0 Hypertensive heart and chronic kidney disease with heart failure and stage 1 through stage 4 chronic kidney disease, or unspecified chronic kidney disease; N18.9 Chronic kidney disease, unspecified; I50.9 Heart failure, unspecified; E78.5 Hyperlipidemia, unspecified; W18.30XA Fall on same level, unspecified, initial encounter; M75.101 Unspecified rotator cuff tear or rupture of right shoulder, not specified as traumatic; I48.2 Chronic atrial fibrillation; I95.9 Hypotension, unspecified; Z79.01 Long term (current) use of anticoagulants; R33.9 Retention of urine, unspecified; Z82.49 Family history of ischemic heart disease and other diseases of the circulatory system; Z95.810 Presence of automatic (implantable) cardiac defibrillator; Y93.89 Activity, other specified; Y92.89 Other specified places as the place of occurrence of the external cause; Y99.8 Other external cause status
CPT/HCPCS: 36415; 71045; 73060; 80048; 80053; 84484; 85025; 85027; 85610; 85730; 93005; A4565; G0378; J0330; J0690; J1100; J1885; J2001; J2250; J2370; J2405; J2704; J2710; J3010; J3490; J7030; J7120